=== PATIENT | female | born 1960 | race Caucasian/White ===

== ENCOUNTER 2016-06-18 18:40 | Emergency (ER) | payer OTHER ==
--- NOTE | 2016-06-18 19:52 | ED ORDER SUMMARY ---
..... Patient: RAMYA MAST OrderSheet [facility] VisitID: [id number] [address] [place] [address] 56y, F Registration Date/Time: 06/18/2016 ORDER SHEET Weight: 57.1 kg (stated) Allergies: "pain meds make me sick" GENERAL ORDERS: Pulse oximeter (19:03 06/18/2016 Rehana R.N. per protocol) (19:03 Rehana R.N.) Ribs Unilat Right Urgent (19:04 06/18/2016 Payton Robison) (Ack 19:05 LNations ER Tech1) (19:21 [facility]) MEDICATION ORDERS: IV FLUIDS: ORDER SHEET NOTES: [Electronically signed by James Motley R.N. (20:54 06/18/2016)] [Electronically signed by Blue Torres Dr. (09:43 06/23/2016)] [Electronically locked/signed by James Motley R.N. (20:54 06/18/2016)]
--- NOTE | 2016-06-18 19:52 | ED CLINICAL REPORT ---
Clinical Report - Physicians/Mid Levels [facility] [address] [place] [address] 06/18/2016 18:45 Patient: RAMYA MAST Arrived- By private vehicle. Historian- patient. HISTORY OF PRESENT ILLNESS Chief Complaint: Injury to CHEST. Location of injuries- (right lateral chest). The injury occurred yesterday. This was not caused by a direct blow or an incised wound. Patient did not fall. She did not sustain a burn. ( bumped into rail while at work. 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 Occurred at work. The patient complains of moderate pain. No blow to the head, neck pain, loss of consciousness or seizure. Not dazed. no nausea, vomiting, or difficulty breathing. REVIEW OF SYSTEMS No numbness, weakness, chest pain, depression or laceration. All systems otherwise negative, except as recorded above. PAST HISTORY See nurses notes. Tetanus immunization status is up-to-date. Medications: ALPRAZolam Oral. Allergies: "pain meds make me sick". SOCIAL HISTORY Never smoker. No alcohol use or drug use. No recent travel. Is a local resident. ADDITIONAL NOTES The nursing notes have been reviewed. PHYSICAL EXAM Vital Signs: 06/18/2016 18:53 BP: 136/70. HR: 87. RR: 20. O2 saturation: 98%. Temp: 98 F. Pain level now: 7/10. Blood pressure normal. Oxygen saturation normal. Appearance: Alert. Oriented X3. No acute distress. Head: Head non-tender. No swelling of head. No Talamantes's sign or raccoon eyes. Eyes: Pupils equal, round and reactive to light. Pupillary exam: Right pupil 3mm, round and reactive to light directly and consensually and with accommodation. Left pupil: 3mm, round and reactive to light directly and consensually and with accommodation. EOM intact. ENT: No dental injury. No hemotympanum. Pharynx normal. No malocclusion. Neck: No decreased ROM or muscle spasm in the neck. No pain with movement of head/neck. Painless ROM. Non-tender. No vertebral tenderness. CVS: Heart sounds normal. Pulses normal. No JVD. Respiratory: Breath sounds normal. (mild right lateral chest wall tenderness. no crepitus. no ezequiel abnormalities. no overlying skin changes. skin intact.). Abdomen: No visible injury. Soft and nontender. Bowel sounds normal. Back: No tenderness. ROM normal. Skin: Skin intact. Skin warm and dry. Normal skin color. Normal skin turgor. Extremities: Normal inspection. Pelvis stable. Extremities atraumatic. No lower extremity edema. Neuro: Tonie Coma Scale: 15- eyes open spontaneously (4); best verbal response- oriented x 3 (5); best motor response- obeys commands (6). Oriented X 3. No motor deficit. No sensory deficit. LABS, X-RAYS, AND EKG Sternum / Ribs X-rays: No fracture present. Normal lung markings present. Soft tissues normal. No bony lesion present. (negative rib film). Views: right ribs. PA and lateral of chest. Technique: good. The X-rays were independently viewed by me and interpreted contemporaneously by me. Prior films were not available for comparison. PROGRESS AND PROCEDURES Course of Care: he patient is a pleasant 56-year-old female presenting for evaluation of right-sided rib pain following injury yesterday. Patient's lungs are clear in examination. Vital signs here in the emergency Department unremarkable. Patient does not have any signs of tension pneumothorax. Patient will be evaluated with chest x-ray for evaluation of ribs and potentially a small pneumothorax. Patient is agreeable to treatment plan. Pain medication has been offered. Patient's chest x-ray does not show any acute abnormalities. Lungs are clear No pulmonary contusion or rib fractures noted. No signs of pneumothorax. I discussion patient in regards to pneumothorax as well asrisk factorfor developing pneumonia and need for adequate inflation of the lungs and deep inspiration. Patient was agreeable to the treatment plan. Vital signs are unremarkable in the emergency Department continues to be unremarkable. Do not feel patient needs to be admitted for hospital require further emergency department workup/evaluation. Had discussion with patient in regards to diagnostic concerns in the emergency department and sometimes difficulty with evaluating small rib fractures. Management for rib contusions versus rib fractures are otherwise noted to be very similar. CLINICAL IMPRESSION 06/18/2016 18:53 BP: 136/70. HR: 87. RR: 20. O2 saturation: 98%. Temp: 98 F. Pain level now: 7/10. Blood pressure normal. Oxygen saturation normal. Single contusion. (acute right lateral chest). INSTRUCTIONS Warnings: GENERAL WARNINGS: Return or contact your physician immediately if your condition worsens or changes unexpectedly, if not improving as expected, or if other problems arise. SPECIFICALLY, return if you develop weakness, numbness, tingling, pain or incontinence. increased pain, shortness of breath, or other concerns. Your Current Medications: CONTINUE TAKING THE FOLLOWING MEDICATIONS: ALPRAZolam Oral. OTC Medications: Acetaminophen (available over the counter): take according to label instructions. Motrin (available over the counter): take according to label instructions. Follow-up: Return to the emergency department as needed. Follow up with your doctor in one week as scheduled. Reason for referral: recheck today's concerns. Summary of care provided to patient via paper. Screening today revealed the patient's blood pressure to be in the normal range. The patient should follow up with a primary care provider for blood pressure management. Understanding of the discharge instructions verbalized by patient. (Electronically signed by Blue Torres Dr. 06/23/2016 9:43)
--- NOTE | 2016-06-18 19:52 | ED NURSING NOTES ---
Clinical Report - Nurses [facility] [address] [place] [address] 06/18/2016 18:45 Patient: [facility]ST [facility] [id number] TRIAGE Triage time 18:54. Acuity: LEVEL 4. Chief Complaint: (CHEST INJURY). 18:55 06/18/16. 18:55 06/18/16. Alert. No acute distress. ( Pt states yesterday that pt hit her right side anterior chest at work sustaining an injury). SEPSIS SCREEN: Sepsis Screen. Negative (no infection suspected/documented). TONIE COMA SCORE: Tonie Coma Scale: 15- eyes open spontaneously (4); best verbal response- oriented x 4 (5); best motor response- obeys commands (6). --18:57 John Hurt R.N. 18:53 06/18/16. BP: 136/70. HR: 87. RR: 20. O2 saturation: 98% on room air. Temp: 98 F (oral). Pain level now: 10/13. --18:57 John Hurt R.N. Weight: 57.1 kg stated. Height/Length: 62 inches Per Patient. BMI: 23. --18:54 John Hurt R.N. Medications ALPRAZolam Oral. --18:56 John Hurt R.N. Allergies "pain meds make me sick". --18:56 John Hurt R.N. History Arrived by private vehicle. Historian: patient. Unaccompanied. Primary physician (TOMASA). 18:55 06/18/16. Location of injuries: right breast. This occurred yesterday. No loss of consciousness. No headache, neck pain or back pain. 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 PAST MEDICAL HX: Tetanus status: up-to-date. Immunizations: up-to-date. SOCIAL HX: Current every day light tobacco smoker (cigarette)- less than 1/2 a pack per day. Occasional alcohol use. No drug use. No infectious disease exposure. ABUSE ASSESSMENT: No report of abuse. FALL RISK ASSESSMENT: Fall risk assessment completed. No fall risk identified. NUTRITIONAL RISK ASSESSMENT: The nutritional risk assessment revealed no deficiencies. FUNCTIONAL ASSESSMENT: Functional assessment: no impairments noted. LEARNING NEEDS ASSESSMENT: The learning needs assessment revealed no barriers. SKIN INTEGRITY ASSESSMENT: Skin integrity risk assessment completed. No skin integrity risk identified. --18:57 John Hurt R.N. PAST MEDICAL HX: The patient has had a hysterectomy. --18:57 John Hurt R.N. PROBLEMS: Anxiety Reaction. Depression. --18:57 John Hurt R.N. ADDITIONAL SURGERIES: Hysterectomy. --18:57 John Hurt R.N. Assessment 18:55 06/18/16. --18:57 John Hurt R.N. Interventions 18:55 06/18/16. 18:55 06/18/16. ID and allergy band on patient. To treatment room. --18:57 John Hurt R.N. PHYSICAL ASSESSMENT 18:57 06/18/16. GENERAL / NEURO / PSYCH: Alert. Oriented X 4. Appears in pain. RESPIRATORY: Right chest wall tenderness. CVS: Right breast area : tenderness. EXTREMITIES: Neuro-vascular status intact to the extremity. SKIN: Skin is warm and dry. --18:58 John Hurt R.N. NURSING PROGRESS NOTES 18:58 06/18/16. Patient gowned. Reassurance given. Two patient identifiers checked. Call light placed in reach. Side rails up x 2. Bed placed in lowest position. Brakes of bed on. Brakes of chair on. --18:58 John Hurt R.N. 18:58 06/18/16. Patient ready for evaluation- chart flagged and notification provided. --18:58 John Hurt R.N. 19:00 06/18/16. ED physician notified about patient's status. --19:00 John Hurt R.N. 19:00 06/18/16. Patient informed about plan of care. --19:00 John Hurt R.N. 19:03 06/18/16. Monitoring of patient in place. Pulse oximeter applied. --19:03 John Hurt R.N. ( report from [facility]). --19:23 James Motley R.N. DISPOSITION / DISCHARGE No learning barriers present. Discharge instructions provided and reviewed with the patient. Reviewed warnings. Reviewed medication(s) information. Patient verbalized understanding. Written instructions provided in Greek. The patient was discharged by the physician. She was discharged home. She left the Emergency Department ambulatory and via private vehicle. Patient driving. ( Pt ambulated on discharge steady on her feet, verbalized understanding of discharge instructions and follow up care). --19:57 James Motley R.N. 19:56 06/18/16. BP: 126/70. HR: 69. RR: 20. O2 saturation: 99%. Temp: 98.3 F. Pain level now 08/13. --19:57 James Motley R.N. Departure time: 19:57 Jun 18 2016. --19:57 James Motley R.N. Locked/Released at 06/18/2016 20:54 by James Motley R.N.
--- NOTE | 2016-06-18 19:52 | ED ORDER SUMMARY ---
..... Patient: RAMYA MAST OrderSheet [facility] VisitID: [id number] [address] [place] [address] 56y, F Registration Date/Time: 06/18/2016 ORDER SHEET Weight: 57.1 kg (stated) Allergies: "pain meds make me sick" GENERAL ORDERS: Pulse oximeter (19:03 06/18/2016 Rehana R.N. per protocol) (19:03 Rehana R.N.) Ribs Unilat Right Urgent (19:04 06/18/2016 Payton Robison) (Ack 19:05 LNations ER Tech1) (19:21 [facility]) MEDICATION ORDERS: IV FLUIDS: ORDER SHEET NOTES: [Electronically signed by James Motley R.N. (20:54 06/18/2016)] [Electronically signed by Blue Torres Dr. (09:43 06/23/2016)] [Electronically locked/signed by James Motley R.N. (20:54 06/18/2016)]
--- NOTE | 2016-06-18 19:52 | ED NURSING NOTES ---
Clinical Report - Nurses [facility] [address] [place] [address] 06/18/2016 18:45 [id number] TRIAGE Triage time 18:54. Acuity: LEVEL 4. Chief Complaint: (CHEST INJURY). 18:55 06/18/16. 18:55 06/18/16. Alert. No acute distress. ( Pt states yesterday that pt hit her right side anterior chest at work sustaining an injury). SEPSIS SCREEN: Sepsis Screen. Negative (no infection suspected/documented). TONIE COMA SCORE: Tonie Coma Scale: 15- eyes open spontaneously (4); best verbal response- oriented x 4 (5); best motor response- obeys commands (6). --18:57 John Hurt R.N. 18:53 06/18/16. BP: 136/70. HR: 87. RR: 20. O2 saturation: 98% on room air. Temp: 98 F (oral). Pain level now: 10/13. --18:57 John Hurt R.N. Weight: 57.1 kg stated. Height/Length: 62 inches Per Patient. BMI: 23. --18:54 John Hurt R.N. Medications ALPRAZolam Oral. --18:56 John Hurt R.N. Allergies "pain meds make me sick". --18:56 John Hurt R.N. History Arrived by private vehicle. Historian: patient. Unaccompanied. Primary physician (TOMASA). 18:55 06/18/16. Location of injuries: right breast. This occurred yesterday. No loss of consciousness. No headache, neck pain or back pain. 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 PAST MEDICAL HX: Tetanus status: up-to-date. Immunizations: up-to-date. SOCIAL HX: Current every day light tobacco smoker (cigarette)- less than 1/2 a pack per day. Occasional alcohol use. No drug use. No infectious disease exposure. ABUSE ASSESSMENT: No report of abuse. FALL RISK ASSESSMENT: Fall risk assessment completed. No fall risk identified. NUTRITIONAL RISK ASSESSMENT: The nutritional risk assessment revealed no deficiencies. FUNCTIONAL ASSESSMENT: Functional assessment: no impairments noted. LEARNING NEEDS ASSESSMENT: The learning needs assessment revealed no barriers. SKIN INTEGRITY ASSESSMENT: Skin integrity risk assessment completed. No skin integrity risk identified. --18:57 John Hurt R.N. PAST MEDICAL HX: The patient has had a hysterectomy. --18:57 John Hurt R.N. PROBLEMS: Anxiety Reaction. Depression. --18:57 John Hurt R.N. ADDITIONAL SURGERIES: Hysterectomy. --18:57 John Hurt R.N. Assessment 18:55 06/18/16. --18:57 John Hurt R.N. Interventions 18:55 06/18/16. 18:55 06/18/16. ID and allergy band on patient. To treatment room. --18:57 John Hurt R.N. PHYSICAL ASSESSMENT 18:57 06/18/16. GENERAL / NEURO / PSYCH: Alert. Oriented X 4. Appears in pain. RESPIRATORY: Right chest wall tenderness. CVS: Right breast area : tenderness. EXTREMITIES: Neuro-vascular status intact to the extremity. SKIN: Skin is warm and dry. --18:58 John Hurt R.N. NURSING PROGRESS NOTES 18:58 06/18/16. Patient gowned. Reassurance given. Two patient identifiers checked. Call light placed in reach. Side rails up x 2. Bed placed in lowest position. Brakes of bed on. Brakes of chair on. --18:58 John Hurt R.N. 18:58 06/18/16. Patient ready for evaluation- chart flagged and notification provided. --18:58 John Hurt R.N. 19:00 06/18/16. ED physician notified about patient's status. --19:00 John Hurt R.N. 19:00 06/18/16. Patient informed about plan of care. --19:00 John Hurt R.N. 19:03 06/18/16. Monitoring of patient in place. Pulse oximeter applied. --19:03 John Hurt R.N. ( report from [facility]). --19:23 James Motley R.N. DISPOSITION / DISCHARGE No learning barriers present. Discharge instructions provided and reviewed with the patient. Reviewed warnings. Reviewed medication(s) information. Patient verbalized understanding. Written instructions provided in Occitan. The patient was discharged by the physician. She was discharged home. She left the Emergency Department ambulatory and via private vehicle. Patient driving. ( Pt ambulated on discharge steady on her feet, verbalized understanding of discharge instructions and follow up care). --19:57 James Motley R.N. 19:56 06/18/16. BP: 126/70. HR: 69. RR: 20. O2 saturation: 99%. Temp: 98.3 F. Pain level now 08/13. --19:57 James Motley R.N. Departure time: 19:57 Jun 18 2016. --19:57 James Motley R.N. Locked/Released at 06/18/2016 20:54 by James Motley R.N.
--- NOTE | 2016-06-18 19:54 | DIAGNOSTIC IMAGING REPORT ---
PROCEDURE: XR RIBS UNILATERAL - RIGHT INDICATION: Ran into a bar at work. TECHNIQUE: Two views of the right ribs with single AP view chest. COMPARISON: None. FINDINGS: RIGHT RIBS: No displaced rib fractures. No suspicious rib lesions. CHEST: Normal cardiomediastinal contour. Coarse interstitial markings. Otherwise clear lungs without pleural effusion, pneumothorax, or contusion. The other visible osseous structures are intact. IMPRESSION: 1. Intact right ribs. 2. Normal chest without radiographic evidence of trauma.
--- NOTE | 2016-06-23 09:43 | ED MAR SUMMARY ---
..... Medication Administration Record Located Within [facility] [address] [place], [place] [id number] Patient: RAMYA MAST Visit ID: [id number] 56y, F Weight: 57.1 kg Height/Length: 62 in BMI: 23 ALLERGIES: "pain meds make me sick"
--- NOTE | 2016-06-23 09:43 | ED MED RECONCILIATION SUMMARY ---
Patient: RAMYA MAST Medication Reconciliation Report [facility] VisitID: [id number] [address] [place] [address] 56y, F Registration Date/Time: 06/18/2016 Weight: 57.1 kg Height/Length: 62 in. BMI: 23.0 ALLERGIES: "pain meds make me sick" The patient's Home Medications are listed below: CONTINUE TAKING THE FOLLOWING MEDICATIONS: ALPRAZolam Oral The source(s) of the original Home Medication information: Not obtained. The following Medications were given to the patient in the Emergency Department: None. The following Medications were prescribed to the patient: Acetaminophen (available over the counter): take according to label instructions. -- Blue Torres Dr. Motrin (available over the counter): take according to label instructions. -- Blue Torres Dr.
--- NOTE | 2016-06-23 09:43 | ED DISCHARGE INSTRUCTIONS ---
Patient: RAMYA MAST General Instructions [facility] VisitID: [id number] [place] [address] 56y, F Registration Date/Time: 06/18/2016 06/18/2016 18:53 BP: 136/70. HR: 87. RR: 20. O2 saturation: 98%. Temp: 98 F. Pain level now: 7/10. Blood pressure normal. Oxygen saturation normal. Single contusion. (acute right lateral chest). INSTRUCTIONS Warnings: GENERAL WARNINGS: Return or contact your physician immediately if your condition worsens or changes unexpectedly, if not improving as expected, or if other problems arise. SPECIFICALLY, return if you develop weakness, numbness, tingling, pain or incontinence. increased pain, shortness of breath, or other concerns. Your Current Medications: CONTINUE TAKING THE FOLLOWING MEDICATIONS: ALPRAZolam Oral. OTC Medications: Acetaminophen (available over the counter): take according to label instructions. Motrin (available over the counter): take according to label instructions. Follow-up: Return to the emergency department as needed. Follow up with your doctor in one week as scheduled. Reason for referral: recheck today's concerns. Summary of care provided to patient via paper. Screening today revealed the patient's blood pressure to be in the normal range. The patient should follow up with a primary care provider for blood pressure management. Understanding of the discharge instructions verbalized by patient. ADDITIONAL INFORMATION Chest Contusion Acontusion is a bruise to the skin, muscle or ribs. It may cause pain, tenderness, swelling and a purplish discoloration. Contusions take a few days to a few weeks to heal. Home Care: Rest. You should not be doing any heavy lifting or strenuous exertion, or any activity that causes pain. You may use acetaminophen (Tylenol) or ibuprofen (Motrin, Advil) to control pain, unless another pain medicine was prescribed. [ NOTE: If you have chronic liver or kidney disease or ever had a stomach ulcer or GI bleeding, talk with your doctor before using these medicines.] Follow Up with your doctor during the next week or as directed. Get Prompt Medical Attention if any of the following occur: Shortness of breath Increasing chest pain with breathing Dizziness, weakness or fainting New or worsening of abdominal pain Fever of 100.4F (38C) or higher, or as directed by your healthcare provider You have been given the following additional information: Chest Wall Contusion (Electronically signed by Blue Torres Dr. 06/23/2016 9:43)
--- NOTE | 2016-06-23 09:43 | ED MAR SUMMARY ---
..... Medication Administration Record [facility] [address] [place], [place] [id number] Patient: RAMYA MAST Visit ID: [id number] 56y, F Weight: 57.1 kg Height/Length: 62 in BMI: 23 ALLERGIES: "pain meds make me sick"
--- NOTE | 2016-06-23 09:43 | ED MED RECONCILIATION SUMMARY ---
Patient: RAMYA MAST Medication Reconciliation Report [facility] VisitID: [id number] [address] [place] [address] 56y, F Registration Date/Time: 06/18/2016 Weight: 57.1 kg Height/Length: 62 in. BMI: 23.0 ALLERGIES: "pain meds make me sick" The patient's Home Medications are listed below: CONTINUE TAKING THE FOLLOWING MEDICATIONS: ALPRAZolam Oral The source(s) of the original Home Medication information: Not obtained. The following Medications were given to the patient in the Emergency Department: None. The following Medications were prescribed to the patient: Acetaminophen (available over the counter): take according to label instructions. -- Blue Torres Dr. Motrin (available over the counter): take according to label instructions. -- Blue Torres Dr.
--- NOTE | 2016-06-23 09:43 | ED DISCHARGE INSTRUCTIONS ---
Patient: RAMYA MAST General Instructions [facility] VisitID: [id number] [place] [address] 56y, F Registration Date/Time: 06/18/2016 06/18/2016 18:53 BP: 136/70. HR: 87. RR: 20. O2 saturation: 98%. Temp: 98 F. Pain level now: 7/10. Blood pressure normal. Oxygen saturation normal. Single contusion. (acute right lateral chest). INSTRUCTIONS Warnings: GENERAL WARNINGS: Return or contact your physician immediately if your condition worsens or changes unexpectedly, if not improving as expected, or if other problems arise. SPECIFICALLY, return if you develop weakness, numbness, tingling, pain or incontinence. increased pain, shortness of breath, or other concerns. Your Current Medications: CONTINUE TAKING THE FOLLOWING MEDICATIONS: ALPRAZolam Oral. OTC Medications: Acetaminophen (available over the counter): take according to label instructions. Motrin (available over the counter): take according to label instructions. Follow-up: Return to the emergency department as needed. Follow up with your doctor in one week as scheduled. Reason for referral: recheck today's concerns. Summary of care provided to patient via paper. Screening today revealed the patient's blood pressure to be in the normal range. The patient should follow up with a primary care provider for blood pressure management. Understanding of the discharge instructions verbalized by patient. ADDITIONAL INFORMATION Chest Contusion Acontusion is a bruise to the skin, muscle or ribs. It may cause pain, tenderness, swelling and a purplish discoloration. Contusions take a few days to a few weeks to heal. Home Care: Rest. You should not be doing any heavy lifting or strenuous exertion, or any activity that causes pain. You may use acetaminophen (Tylenol) or ibuprofen (Motrin, Advil) to control pain, unless another pain medicine was prescribed. [ NOTE: If you have chronic liver or kidney disease or ever had a stomach ulcer or GI bleeding, talk with your doctor before using these medicines.] Follow Up with your doctor during the next week or as directed. Get Prompt Medical Attention if any of the following occur: Shortness of breath Increasing chest pain with breathing Dizziness, weakness or fainting New or worsening of abdominal pain Fever of 100.4F (38C) or higher, or as directed by your healthcare provider You have been given the following additional information: Chest Wall Contusion (Electronically signed by Blue Torres Dr. 06/23/2016 9:43)
== END 2016-06-18 19:57 ==
LOC: ED SRH 18:40
DX: S20.211A Contusion of right front wall of thorax, initial encounter (principal); W22.09XA Striking against other stationary object, initial encounter; Y93.89 Activity, other specified; Y92.511 Restaurant or cafe as the place of occurrence of the external cause; Y99.0 Civilian activity done for income or pay; F17.210 Nicotine dependence, cigarettes, uncomplicated

== ENCOUNTER 2016-06-30 08:18 | Outpatient (CLI) | payer OTHER ==
--- NOTE | 2016-06-30 09:00 | DIAGNOSTIC IMAGING REPORT ---
PROCEDURE: XR CHEST 2 VIEW INDICATION: DYSPNEA ON EXERTION TECHNIQUE: PA and lateral view. COMPARISON: None. FINDINGS: Lungs are clear. Cardiovascular structures are normal. Bony thorax is unremarkable. IMPRESSION: 1. Negative chest.
== END 2016-06-30 23:00 ==
LOC: XR SRH 08:18
DX: R06.09 Other forms of dyspnea (principal)